=== PATIENT | male | born 1970 | race African-American/Black ===

== ENCOUNTER 2021-05-13 15:07 | Emergency (ER) | payer OTHER ==
[~2021-05-13] VITALS: Ht 182.9 cm; Wt 90.7 kg
[2021-05-13] MEDS ORDERED: NALOXONE PREFILLED SYRINGE 2 MG/2 ML SYRINGE ONE (15:42)
[2021-05-13] MEDS: NALOXONE HCL 0.4 MG/ML AMPUL IV ONE (15:48)
--- NOTE | 2021-05-13 16:00 | NUR ---
PT AAOX1, ABLE TO VERBALIZE HIS NAME, WILL OPEN EYES & GOES BACK TO SLEEP. VSS. RR EVEN & UNLABORED. PT SEEN & EVAL'D BY DR. DASLIVA. REFUSED BLOOD DRAW & UNCOOPERATIVE, ERMD AWARE. PLACED ON VIDEO PRESENTATION OPERATOR, SR. WILL CONT TO MONITOR.
[2021-05-13] MEDS: NALOXONE PREFILLED SYRINGE 2 MG/2 ML SYRINGE IM ONE (16:05)
[2021-05-13] MEDS: IV NS 0.9% 1,000 ML BAG IV ONE (16:07)
[2021-05-13] MEDS: ONDANSETRON HCL/PF 4 MG/2 ML VIAL IV ONE (16:07)
--- NOTE | 2021-05-13 16:10 | NUR ---
GIVEN OJ, PT MAX WELL.
--- NOTE | 2021-05-13 17:45 | NUR ---
PT REQUESTING FOOD. ORDERED FOOD FROM THE KITCHEN.
[2021-05-13] MEDS ORDERED: NALO4SPR BNOSTRILS (19:42)
[2021-05-13 19:49] VITALS: BP 128/70
--- NOTE | 2021-05-13 19:49 | NUR ---
Patient discharged to home in stable condition. Written and verbal after care instructions given. Patient verbalizes understanding of instruction.
== END 2021-05-13 19:50 | disposition home or self-care (01) ==
LOC: ER 15:09 → EDBD 15:09 → ER 19:50
DX: T40.601A Poisoning by unspecified narcotics, accidental (unintentional), initial encounter (principal); F11.229 Opioid dependence with intoxication, unspecified; Y92.511 Restaurant or cafe as the place of occurrence of the external cause
CPT/HCPCS: 82962; 93005; 96372; 99283; J2310

== ENCOUNTER 2021-07-25 23:34 | Emergency (ER) | payer OTHER ==
[~2021-07-25] VITALS: Ht 185.4 cm; Wt 74.8 kg
[~2021-07-25 23:34] MED LIST: NALO4SPR BNOSTRILS
[2021-07-25 23:52] VITALS: BP 149/87
--- NOTE | 2021-07-25 23:55 | NUR ---
[id number] C/O CHRONIC LEFT LEG PAIN. PT A/OX4. TOLERATING R/A WELL WITH NO SOB.
--- NOTE | 2021-07-26 00:18 | NUR ---
Patient discharged to home in stable condition with security. Written and verbal after care instructions given. Patient verbalizes understanding of instruction. Pt ambulatory with a steady gait
== END 2021-07-26 00:18 | disposition home or self-care (01) ==
LOC: ER 23:41
DX: G89.29 Other chronic pain (principal); M79.605 Pain in left leg; Z76.5 Malingerer [conscious simulation]; Z59.00 Homelessness unspecified; Z79.899 Other long term (current) drug therapy

== ENCOUNTER 2022-07-03 16:37 | Inpatient (IN) | payer OTHER ==
[~2022-07-03] VITALS: Ht 198.1 cm; Wt 93.9 kg
[2022-07-03] MEDS ORDERED: CHLORDIAZEPOXIDE HCL 25 MG CAPSULE ONE (17:23)
[2022-07-03] MEDS ORDERED: ONDANSETRON HCL/PF 4 MG/2 ML VIAL ONE (17:23)
[2022-07-03] MEDS ORDERED: KETOROLAC TROMETHAMINE 15 MG/ML VIAL ONE (17:23)
[2022-07-03] MEDS ORDERED: LORAZEPAM INJ 2 MG/ML VIAL ONE ×2 (17:23→19:51)
[2022-07-03] MEDS ORDERED: FAMOTIDINE/PF INJ 20 MG/2 ML VIAL IV ONE ×2 (17:24→17:30)
[2022-07-03] MEDS ORDERED: ONDANSETRON HCL/PF 4 MG/2 ML VIAL IVP ONE (17:30)
[2022-07-03] MEDS ORDERED: CHLORDIAZEPOXIDE HCL 25 MG CAPSULE PO ONE (17:30)
[2022-07-03] MEDS ORDERED: IV NS 0.9% 1,000 ML BAG IV ONE (17:30)
[2022-07-03] MEDS ORDERED: KETOROLAC TROMETHAMINE INJ 30 MG/ML VIAL IV ONE (17:30)
[2022-07-03] MEDS ORDERED: LORAZEPAM INJ 2 MG/ML VIAL IV ONE ×2 (17:30→19:30)
[2022-07-03 17:32] LABS: BASOPHILS % (AUTO) 0.6 % (0.0-2.0); EOSINOPHILS % (AUTO) 0.4 % (0.0-6.0); HEMATOCRIT 35 % (39-51); HEMOGLOBIN 11.5 g/dL (13.5-17.5); LYMPHOCYTES # (AUTO) 0.8 K/uL (0.8-4.8); LYMPHOCYTES % (AUTO) 20.8 % (20.0-44.0); MEAN CORPUSCULAR HGB CONC 33 g/dl (31.0-36.0); MEAN CORPUSCULAR VOLUME 91 fL (80-96); MONOCYTES # (AUTO) 0.4 K/uL (0.1-1.30); MONOCYTES % (AUTO) 10.8 % (2.0-12.0); NEUTROPHILS # (AUTO) 2.5 K/uL (1.8-8.9); NEUTROPHILS % (AUTO) 67.4 % (43.0-81.0); PLATELET COUNT (AUTO) 82 K/uL (150-450); RED BLOOD CELL COUNT(AUTO) 3.87 MIL/uL (4.5-6.0); WHITE BLOOD COUNT (AUTO) 3.7 K/uL (4.3-11.0)
--- NOTE | 2022-07-03 17:35 | NUR ---
[id number], from [facility] c/o nausea vomiting, syncope. On room air, breathing evenly and unlabored. Kept comfortable, will continue to monitor accordingly.
--- NOTE | 2022-07-03 17:37 | NUR ---
[facility] COLLECTED AND SENT TO LAB
[2022-07-03 17:52] LABS: CALCIUM, SERUM 8.9 mg/dL (8.5-10.1); CARBON DIOXIDE 25 mmol/L (21-32); CHLORIDE 104 mmol/L (98-107); CREATININE 0.9 mg/dL (0.6-1.3); GLUCOSE 98 mg/dL (74-106); POTASSIUM 3.4 mmol/L (3.5-5.1); SODIUM SERUM 144 mmol/L (136-145); UREA NITROGEN, BLOOD 7 mg/dL (7-18)
[2022-07-03 18:00] LABS: ALANINE AMINOTRANSFERASE 50 U/L (12-78); ALBUMIN 3.8 g/dL (3.4-5.0); ALCOHOL, BLOOD 88 mg/dL (0-0); ALKALINE PHOSPHATASE 107 U/L (46-116); ASPARTATE AMINOTRANSFERASE 61 U/L (15-37); BILIRUBIN,DIRECT 0.2 mg/dL (0.0-0.2); BILIRUBIN,TOTAL 0.7 mg/dL (0.2-1.0); LIPASE 85 U/L (73-393); TOTAL PROTEIN, SERUM 7.2 g/dL (6.4-8.2)
[2022-07-03] MEDS ORDERED: POTASSIUM CHLORIDE 20 MEQ TAB.PRT.SR PO ONE ×2 (19:51→20:00)
--- NOTE | 2022-07-03 19:51 | NUR ---
URINE SPECIMEN SENT TO LAB
[2022-07-03 20:04] LABS: BILIRUBIN,URINE NEGATIVE (NEGATIVE); COLOR,URINE YELLOW (YELLOW); LEUKOCYTE ESTERASE ,URINE NEGATIVE (NEGATIVE); NITRITE, URINE NEGATIVE (NEGATIVE); PROTEIN,URINE 1+ mg/dl (NEGATIVE); UGLUCOSE NEGATIVE (NEGATIVE)
[2022-07-03 20:28] LABS: BACTERIA,URINE Few /HPF (None Seen); RBC,URINE 0-2 /HPF (0-2); SQUAMOUS EPITHELIAL CELL,UR Few /HPF (None Seen); WBC,URINE 0-2 /HPF (0-3)
[2022-07-03] MEDS ORDERED: MAG HYDROX/AL HYDROX/SIMETH 30 ML UDC PO PRN (23:30)
[2022-07-03] MEDS ORDERED: ONDANSETRON HCL/PF 4 MG/2 ML VIAL IVP PRN (23:30)
[2022-07-03] MEDS ORDERED: IV 1/2NS 1000 ML 1,000 ML IV PRN (23:30)
[2022-07-03] MEDS ORDERED: Z GUARD REMEDY 4 OZ OINT TP PRN (23:30)
[2022-07-03] MEDS ORDERED: ACETAMINOPHEN 325 MG TABLET PO PRN (23:30)
--- NOTE | 2022-07-03 23:31 | NUR ---
REPORT GIVEN TO DANN WHITE
--- NOTE | 2022-07-03 23:45 | NUR ---
PATIENT TRANSFERRED TO ROOM 308 VIA ACLS PROTOCOL
--- NOTE | 2022-07-03 23:50 | NUR ---
RN RECEIVING PATIENT FROM ER NOTE PATIENT ARRIVED TO UNIT VIA GURNEY FROM ER STABLE. PATIENT IS A/OX4. NO S/S OF DISTRESS, BREATHING WITHOUT DIFFICULTY ON ROOM AIR. L-WRIST #18 INTACT AND PATENT. TELE READS SR 81. PATIENT ORIENTED TO UNIT. PATIENT GIVEN CALL MALIK AND EDUCATED ON USE. TELE BOX APPLIED AND PATIENT EDUCATION GIVEN REGARDING ITS USE AND ROLE IN PRESENT TREATMENT PLAN. ALL BELONGINGS ACCOUNTED FOR, LOGGED INTO SHEET, AND PLACED IN CHART. SAFETY MEASURES IN PLACE: BED LOCKED AND AT LOWEST POSITION, RAILS UP X2, CALL MALIK WITHIN REACH. WILL CONTINUE TO MONITOR PATIENT.
[2022-07-04] MEDS: LORAZEPAM INJ 2 MG/ML VIAL IV PRN ×2 (00:52→06:33)
[2022-07-04 01:17] VITALS: BP 159/93
[2022-07-04 04:00] VITALS: BP 156/85
[2022-07-04 07:01] LABS: HEMOGLOBIN 11.6 g/dL (13.5-17.5); MONOCYTES # (AUTO) 0.4 K/uL (0.1-1.30); PLATELET COUNT (AUTO) 69 K/uL (150-450); WHITE BLOOD COUNT (AUTO) 3.7 K/uL (4.3-11.0)
--- NOTE | 2022-07-04 07:01 | NUR ---
RN CLOSING NOTE PATIENT AWAKE IN BED. A/OX4 W/ BOUTS OF CONFUSION. NO S/S OF DISTRESS, BREATHING WITHOUT DIFFICULTY ON ROOM AIR. L-WRIST #18 INTACT AND PATENT W/ NS 75ML/HR. TELE READS SR 85. SAFETY MEASURES IN PLACE: BED LOCKED AND AT LOWEST POSITION, RAILS UP X2, CALL MALIK WITHIN REACH. WILL ENDORSE TO NEXT SHIFT FOR JENARO.
--- NOTE | 2022-07-04 07:05 | NUR ---
RN OPENING NOTE RECEIVED PATIENT AWAKE IN BED, A/OX4 HOWEVER W/ BOUTS OF CONFUSION. NO S/S OF DISTRESS, BREATHING WITHOUT DIFFICULTY ON ROOM AIR. L-WRIST #18 INTACT AND PATENT W/ NS 75ML/HR. TELE READS SR 85. SAFETY MEASURES IN PLACE: BED LOCKED AND AT LOWEST POSITION, RAILS UP X2, CALL MALIK WITHIN REACH. WILL CONTINUE TO MONITOR THE PATIENT FOR JENARO.
[2022-07-04 07:20] LABS: BASOPHILS % (AUTO) 0.3 % (0.0-2.0); HEMATOCRIT 35 % (39-51); LYMPHOCYTES % (AUTO) 26.4 % (20.0-44.0); MEAN CORPUSCULAR HGB CONC 33 g/dl (31.0-36.0); MEAN CORPUSCULAR VOLUME 91 fL (80-96); MONOCYTES % (AUTO) 10.9 % (2.0-12.0); NEUTROPHILS # (AUTO) 2.3 K/uL (1.8-8.9); NEUTROPHILS % (AUTO) 61.4 % (43.0-81.0); RED BLOOD CELL COUNT(AUTO) 3.88 MIL/uL (4.5-6.0)
[2022-07-04 07:28] LABS: THYROID STIMULATING HORMONE 0.334 uIU/mL (0.358-3.74)
[2022-07-04 07:58] LABS: ALBUMIN 3.2 g/dL (3.4-5.0); CALCIUM, SERUM 8.6 mg/dL (8.5-10.1); CREATININE 0.8 mg/dL (0.6-1.3); MAGNESIUM 1.4 mg/dL (1.8-2.4); POTASSIUM 3.4 mmol/L (3.5-5.1); TOTAL PROTEIN, SERUM 6.6 g/dL (6.4-8.2)
[2022-07-04] MEDS: PANTOPRAZOLE 40 MG TABLET.DR PO SCH (08:33)
[2022-07-04] MEDS: CHLORDIAZEPOXIDE HCL 25 MG CAPSULE PO SCH ×3 (08:34→17:14)
[2022-07-04] MEDS: THIAMINE HCL 100 MG TABLET PO SCH (08:34)
[2022-07-04] MEDS: FOLIC ACID 1 MG TABLET PO SCH (08:35)
[2022-07-04 08:39] VITALS: BP 173/91
[2022-07-04 08:57] LABS: BILIRUBIN,DIRECT 0.2 mg/dL (0.0-0.2)
[2022-07-04] MEDS ORDERED: LISINOPRIL (10MG) 10 MG TABLET PO SCH (09:00)
--- NOTE | 2022-07-04 09:29 | NUR ---
WOUND CARE CONSULT: PT PRESENTS WITH CALLUSED FEET AND DARK DEBRIS WHICH IS ADHERENT WELL JAGGED TOENAILS, PRESENT ON ADMISSION. PT STATES THAT HE WALKS A LOT IN BAD SHOES. DR LIZ CALLED FOR DPM CONSULT.
[2022-07-04] MEDS ORDERED: QUET25TA PO (09:54)
[2022-07-04] MEDS ORDERED: LISI10TA29 PO (09:54)
[2022-07-04] MEDS ORDERED: PANT40TA49 PO (09:54)
[2022-07-04] MEDS ORDERED: AMLO-213 PO (09:54)
[2022-07-04] MEDS ORDERED: ONDA-97 PO (09:54)
[2022-07-04] MEDS ORDERED: SERT50TA PO (09:54)
[2022-07-04] MEDS: MAGNESIUM OXIDE 400 MG TABLET PO ONE ×2 (10:09→10:17)
[2022-07-04] MEDS: POTASSIUM CHLORIDE 20 MEQ TAB.PRT.SR PO SCH ×2 (10:09→10:17)
--- NOTE | 2022-07-04 10:18 | NUR ---
Patient refused both medications : Magnesium [id number] x 4tabs and K-Dur 20 meq. Educated patient about risks and benefits of taking the medications but still refused. informed
--- NOTE | 2022-07-04 11:02 | NUR ---
SW Consult: SW consult requested for patient possible homelessness and substance abuse. Patient was brought in due to alcohol withdrawal. Patient presents alert and oriented x3 (self,place,time). Pt appeared with a flat affect. He was vague with his questions, however, he was cooperative. Pt stated he was brought to the hospital due to feeling sick. Pt stated that he has been on and off homeless. He was unable to give me a current address. He has no supportive contact. SW assessed for suicidal or homicidal, pt denied. SW assessed any hallucinations visual/auditory, pt denied. SW assessed for substance abuse and pt expressed that he has been drinking "a lot" and stated he drinks everyday. Pt denied any use of drugs. SW offered pt resources and pt was accepting of shelters and substance abuse referrals. Homeless waiver form in the chart. DC PLAN: Pt is homeless. SW consulted with CM to send pt to [facility]. Substance Abuse resources provided included: [facility] Substance Abuse Self-Helpline ([facility]) ; CRI -HELP [address] [facility]. [place] [address] ; [facility] [address] [facility] [address] ; [facility] Rehabilitation [facility] [address] [facility] [phone] ; [facility] [address] [facility] [phone] ; [facility] 4940 [place] [facility] [phone] ; [facility] 909 [facility] [address] ; [facility] Substance Abuse Helpline([facility])-[facility] ; [facility] ; [facility] [place]; [facility] [place]; [facility] [place]; I-[facility] [place]; [facility] [place]; [facility] [place]; [facility]. [place]; Alcoholics Anonymous -SFV; Rb-Uonr-Dcjxgao ; Marijuana Anonymous -SFV; Narcotics Anonymous www.na.org; Shelters: [facility] [place] Provider: [facility] [place] Address: [address], [address] # of Beds: 47 Population Served: [facility] 6 | [facility] Laly [facility] Provider: [facility] Address: [address] [place] [address], [address] # of Beds: 66 Population Served: [facility] Provider: First to Serve Address: [address] [facility], [address] # of Beds: 56 Population Served: [facility] [place] Provider: [facility] Address: [address] [facility], [address] # of Beds: 49 Population Served: [facility] 8 | [facility] Provider: First to Serve Address: [address] [facility], [address] # of Beds: 37 Population Served: [facility] Hygiene: [facility]: [address] [place] ; [facility] [address] [facility] ; [facility] [address] [place] [address] . Food Resources: [place] [facility]- [address] [address]. [place]; Meet Each Need with Dignity ([facility]) [address] [place]; [facility] 5541 [facility]; [facility] 8547 [facility]. Mental Health resources provided: [facility] [address] [place], [place] [address] ; [facility] [address] [address] [facility] [address], [place], [place] [phone] ; [facility] [address] [place], [place] [phone] ; [facility] [address] [place], [place] [id number] Healthcare Clinics: [facility] [address] [facility], [address] [place]. [place] ; [facility] [address] [facility] [address] [place] [address]; [facility] [address] [place] [phone]) [phone] Counseling--Outpatient [facility] [address] [facility], [place] [address] (Specializes in in-depth psychotherapy for emotional distress: anxiety, depression, interpersonal conflicts, life transitions, childhood abuse) [facility] [address] [place], [place] [phone] (Assist with solving problem marital difficulties, separation & divorce, aging parents, & grief, chronic & terminal illness) [facility] [address] [place] [address] (Deal with loss & grief, anxiety, marital difficulties) Homebound/Mental Health Services [address] [facility], [address] [place], [place] [address] (Provide in-home mental services to people who are incapable of leaving their homes) [facility] of the Elderly Senior Service/Resource Center [address] [place], [place] [phone] [facility] [address] [facility]. [place], [place] [address] PSYCHIATRIC OUTPATIENT SERVICES [facility] Partial Hospitalization and Intensive Outpatient Program (Managed Care and [place] Only)[address] [place] [address] [facility] [phone] [facility] Partial Hospitalization and Outpatient [id number] [place], [place] [phone] [place] A[place] [facility] [place] [id number] [facility]. [address] [place], [place] [phone] [facility] Partial Hospitalization and Outpatient [id number] Bern[address] Malone [place] aiden, [phone] Substance Abuse resources provided included: [facility] Substance Abuse Self-Helpline ([facility]) ; C[facility]LP [address] [facility]. [place] 9[address] ; [facility] [address] [facility] [address] ; [facility] Rehabilitation Program [address] [place] vdGarnet Health [address] ; [facility] [address] [facility] [phone] ; [facility] Treatment [facility] 4940 [facility] [address] ; [facility] 909 [facility] [phone] ; [facility] Substance Abuse Helpline([facility])-[facility] ; [facility] ; [facility]; [facility] [place]; [facility] [place]; [facility] [place]; [facility]; [place] [facility]; [facility] Treatment [place]; [facility], [facility]. Mireya Ascencio; Alcoholics Anonymous -sfv; [place] ; Marijuana Anonymous -SFV; Narcotics Anonymous www.na.org;
[2022-07-04 12:00] VITALS: BP 156/97
[2022-07-04 14:36] LABS: LYMPHOCYTES % (MANUAL) 18 % (16-48); MONOCYTES % (MANUAL) 5 % (0-11.0); NEUTROPHILS % (MANUAL) 77 (42-76)
[2022-07-04 16:06] VITALS: BP 160/98
[2022-07-04] MEDS: POTASSIUM CL. PREMIX PERIPHER. 50 ML IV SCH ×2 (16:43→17:49)
--- NOTE | 2022-07-04 19:40 | NUR ---
DOUBLE END TENON OPERATOR OPENING NOTE RECEIVED PATIENT IN BED; AWAKE, ALERT AND ORIENTED X 4. ON ROOM AIR; TOLERATING WELL. NOT IN ANY FORM OF RESPIRATORY OR CARDIAC DISTRESS. ON EXTERNAL CARDIAC MONITORING WHICH READS SINUS RHYTHM WITH BBB HR-86 BPM. WITH IV ACCESS ON LEFT WRIST 18g; PATENT AND INTACT INFUSING WITH 1/2 NS 1L RUNNING @ 75 ML/HR; FLUSHES WELL. ABLE TO MAKE NEEDS KNOWN. FALL AND SAFETY PRECAUTIONS INITIATED: BED ALARM ON, CALL LIGHT AND TABLE WITHIN REACH, SIDE RAILS UP X 3, BED IN LOWEST LOCKED POSITION. WILL CONTINUE TO MONITOR THROUGHOUT SHIFT.
--- NOTE | 2022-07-04 19:49 | NUR ---
RN CLOSING NOTE PATIENT AWAKE IN BED, A/OX4, NO S/S OF DISTRESS, BREATHING WITHOUT DIFFICULTY ON ROOM AIR. PATIENT AMBULATING LATER THIS AFTERNOON, HAD 2 BOWEL MOVEMENT. L-WRIST #18 C/D/I W/ NS 75ML/HR OFF AT THE MOMENT WHILE PATIENT TRYING ANOTHER BM. TELE READS SR 80 WITH BBB. SAFETY MEASURES IN PLACE: BED LOCKED AND AT LOWEST POSITION, RAILS UP X2, CALL MALIK WITHIN REACH. ENDORSED TO PM SHIFT NURSE FOR JENARO
[2022-07-04] MEDS: QUETIAPINE FUMARATE 25 MG TABLET PO SCH (22:00)
[2022-07-04] MEDS ORDERED: hydrALAZINE HCL IV 20 MG VIAL IV PRN (23:30)
[2022-07-05] MEDS: LORAZEPAM INJ 2 MG/ML VIAL IV PRN ×4 (00:13→21:08)
--- NOTE | 2022-07-05 00:13 | NUR ---
RN NOTE ANXIOUSNESS NOTED ON PATIENT. ATIVAN INJ 1 MG GIVEN IV ORDERED. WILL CONTINUE TO MONITOR.
--- NOTE | 2022-07-05 03:40 | NUR ---
RN NOTE PATIENT'S EXTERNAL TIME CYCLE OPERATOR LEADS ARE OFF. TRIED TO FIX IT BUT PATIENT REFUSED TO BE HOOKED BACK TO THE EXTERNAL TIME CYCLE OPERATOR.
[2022-07-05 07:00] VITALS: BP 146/77
--- NOTE | 2022-07-05 07:05 | NUR ---
WATER LEAK REPAIRER CLOSING NOTE PATIENT IN BED; AWAKE, A/O X 4. STABLE ON ROOM AIR. IN NO ACUTE DISTRESS. WITH IV ACCESS ON LEFT WRIST 18g; PATENT AND INTACT INFUSING WITH 1/2 NS 1L RUNNING @ 75 ML/HR; FLUSHING WELL. ALL NEEDS ATTENDED. ALL DUE MEDS GIVEN ORDERED. FALL AND SAFETY PRECAUTIONS MAINTAINED: BED ALARM ON, CALL LIGHT AND TABLE WITHIN REACH, SIDE RAILS UP X 3, BED IN LOWEST LOCKED POSITION. ENDORSED TO MORNING SHIFT FOR CONTINUITY OF CARE.
[2022-07-05] MEDS ORDERED: POTASSIUM CHLORIDE 20 MEQ TAB.PRT.SR PO ONE (07:30)
[2022-07-05] MEDS ORDERED: CLONIDINE HCL 0.1 MG TABLET PO PRN (07:30)
[2022-07-05] MEDS: PANTOPRAZOLE 40 MG TABLET.DR PO SCH ×2 (07:30→08:09)
--- NOTE | 2022-07-05 07:40 | NUR ---
RN NOTE- PATIENT IN BED; AWAKE, A/O X 4. ANXIOUS, TREMORS IN HANDS, ATIVAN [address] LANDA AT BEDSIDE. . WITH IV ACCESS ON LEFT WRIST 18g; PATENT AND INTACT INFUSING WITH 1/2 NS RUNNING @ 75 ML/HR;. . FALL AND SAFETY PRECAUTIONS MAINTAINED: MONITOR FOR SZ AND WITHDRAWAL SX, BED ALARM ON, CALL LIGHT AND TABLE WITHIN REACH, SIDE RAILS UP X 3, BED IN LOWEST LOCKED POSITION.
[2022-07-05] MEDS: SERTRALINE HCL 50 MG TABLET PO SCH (08:08)
[2022-07-05] MEDS: THIAMINE HCL 100 MG TABLET PO SCH (08:08)
[2022-07-05] MEDS: CHLORDIAZEPOXIDE HCL 25 MG CAPSULE PO SCH ×3 (08:09→17:30)
[2022-07-05] MEDS: LISINOPRIL (20MG) 20 MG TABLET PO SCH (08:09)
[2022-07-05] MEDS: AMLODIPINE BESYLATE 10 MG TABLET PO SCH (08:09)
[2022-07-05] MEDS: FOLIC ACID 1 MG TABLET PO SCH (08:09)
[2022-07-05] MEDS: MAGNESIUM OXIDE 400 MG TABLET PO SCH ×2 (08:18→21:49)
[2022-07-05] MEDS ORDERED: ONDANSETRON 4 MG TAB.RAPDIS PO PRN (08:30)
[2022-07-05] MEDS ORDERED: LISINOPRIL (10MG) 10 MG TABLET PO SCH (09:00)
[2022-07-05 16:00] VITALS: BP 149/89
--- NOTE | 2022-07-05 18:34 | NUR ---
RN CLOSING NOTE- PT IN BED AWAKE, INTERACTIVE, DECREASED TREMULOUSNESS TODAY, MEDICATED W ATIVAN 1MG IVP. PO INTAKE GOOD, AMBULATES TO BR. VOIDING IN URINAL; SIDE RILS UP, BED LOCKED, CALL LIGHT IN REACH, MONITOR / ASSIST
--- NOTE | 2022-07-05 19:40 | NUR ---
RN OPENING NOTE RECEIVED PATIENT IN BED; AWAKE, ALERT AND ORIENTED X 4. ON ROOM AIR; TOLERATING WELL. NOT IN ANY FORM OF RESPIRATORY OR CARDIAC DISTRESS. TELE MONITORING BOX ON STANDBY MODE; PATIENT REFUSED TO BE ATTACHED TO THE MONITOR BOX. WITH IV ACCESS ON LEFT WRIST 18g; PATENT, INTACT AND SALINE LOCKED. ABLE TO MAKE NEEDS KNOWN. FALL AND SAFETY PRECAUTIONS INITIATED: BED ALARM ON, CALL LIGHT AND TABLE WITHIN REACH, SIDE RAILS UP X 3, BED IN LOWEST LOCKED POSITION. WILL CONTINUE TO MONITOR THROUGHOUT SHIFT.
[2022-07-05 20:00] VITALS: BP 142/96
--- NOTE | 2022-07-05 21:08 | NUR ---
RN NOTE PATIENT REQUESTED FOR ATIVAN. PRN ATIVAN INJ 0.5ML GIVEN IV ORDERED. WILL CONTINUE TO MONITOR AND REASSESS PATIENT.
[2022-07-05] MEDS: QUETIAPINE FUMARATE 25 MG TABLET PO SCH (21:49)
[2022-07-05] MEDS ORDERED: QUETIAPINE FUMARATE 25 MG TABLET PO SCH (22:00)
[2022-07-06] VITALS: BP 146/72
--- NOTE | 2022-07-06 06:56 | NUR ---
READING PROFESSOR CLOSING NOTE PATIENT IN BED; AWAKE, A/O X 4. STABLE ON ROOM AIR. IN NO ACUTE DISTRESS. WITH IV ACCESS ON RIGHT UPPER ARM MIDLINE 18g; PATENT AND INTACT INFUSING WITH 1/2 NS 1L RUNNING @ 75 ML/HR; FLUSHING WELL. ALL NEEDS ATTENDED. ALL DUE MEDS GIVEN ORDERED. FALL AND SAFETY PRECAUTIONS MAINTAINED: BED ALARM ON, CALL LIGHT AND TABLE WITHIN REACH, SIDE RAILS UP X 3, BED IN LOWEST LOCKED POSITION. ENDORSED TO MORNING SHIFT FOR CONTINUITY OF CARE.
[2022-07-06] MEDS: PANTOPRAZOLE 40 MG TABLET.DR PO SCH ×2 (07:30→08:26)
--- NOTE | 2022-07-06 07:30 | NUR ---
CREAM DUMPER OPENING NOTE RECEIVED PATIENT ON BED AWAKE AND A/O X 4. ON ROOM AIR; TOLERATING WELL. NOT IN DISTRESS. TELE MONITOR ON STANDBY MODE. PATIENT REFUSED TO BE ATTACHED ON TELE MONITOR. WITH IV ACCESS ON LEFT WRIST G18 PATENT, INTACT AND SALINE LOCKED. FALL AND SAFETY PRECAUTIONS MAINTAINED. CALL LIGHT WITHIN REACH. BED ON LOWEST LOCKED POSITION, SIDE RAILS UP X2. WILL CONTINUE TO MONITOR.
[2022-07-06 08:00] VITALS: BP 160/105
[2022-07-06] MEDS: THIAMINE HCL 100 MG TABLET PO SCH (08:26)
[2022-07-06] MEDS: CHLORDIAZEPOXIDE HCL 25 MG CAPSULE PO SCH ×2 (08:26→13:12)
[2022-07-06] MEDS: LISINOPRIL (20MG) 20 MG TABLET PO SCH (08:26)
[2022-07-06] MEDS: SERTRALINE HCL 50 MG TABLET PO SCH (08:26)
[2022-07-06] MEDS: AMLODIPINE BESYLATE 10 MG TABLET PO SCH (08:27)
[2022-07-06] MEDS: FOLIC ACID 1 MG TABLET PO SCH (08:27)
[2022-07-06] MEDS ORDERED: LORA-259 PO (08:35)
[2022-07-06] MEDS: LORAZEPAM INJ 2 MG/ML VIAL IV PRN (08:37)
[2022-07-06] MEDS ORDERED: FOLI0.8C PO (08:38)
[2022-07-06] MEDS ORDERED: THIA100T88 PO (08:38)
[2022-07-06 12:00] VITALS: BP 156/101
--- NOTE | 2022-07-06 15:30 | NUR ---
WET ROOM SUPERVISOR NOTES PATIENT WAS SEEN BY DR. LANDA AND ORDERED PATIENT FOR DISCHARGE TO [facility]. DISCHARGE INSTRUCTION PROVIDED TO PATIENT. PATIENT VERBALIZED UNDERSTANDING. DISCHARGE AND BELONGINGS LIST FORM SIGNED. REMOVED IV LINE. PATIENT WAS PICKED UP BY AMBULANCE PERSONNEL IN STABLE CONDITION, AMBULATORY. MD AND CHARGE NURSE ARE AWARE OF THE DISCHARGE.
== END 2022-07-06 15:30 | DRG 425 ==
LOC: ER 16:40 → TELE 22:49
PROVIDERS: ADMIT Nurse Practitioner Family; ATTEND Internal Medicine
DX: E87.6 Hypokalemia (principal); D61.818 Other pancytopenia; F29 Unspecified psychosis not due to a substance or known physiological condition; F25.1 Schizoaffective disorder, depressive type; I10 Essential (primary) hypertension; J44.9 Chronic obstructive pulmonary disease, unspecified; Z59.00 Homelessness unspecified; Z20.822 Contact with and (suspected) exposure to COVID-19; F17.200 Nicotine dependence, unspecified, uncomplicated; I20.9 Angina pectoris, unspecified; Y90.4 Blood alcohol level of 80-99 mg/100 ml; F19.10 Other psychoactive substance abuse, uncomplicated; F41.9 Anxiety disorder, unspecified; L60.3 Nail dystrophy; R25.1 Tremor, unspecified; L84 Corns and callosities; R20.2 Paresthesia of skin; F10.229 Alcohol dependence with intoxication, unspecified; F10.239 Alcohol dependence with withdrawal, unspecified
CPT/HCPCS: 36415; 80048-TC; 80076-TC; 81001; 83690-TC; 83735-TC; 84100-TC; 84443-TC; 85025-TC; 87081-TC; A4223; C9803; G0378; G0480; J0360; J1885; J2060; J2405; J3480; J3490; J7030

== ENCOUNTER 2022-07-19 21:29 | Emergency (ER) | payer OTHER ==
[~2022-07-19] VITALS: Ht 177.8 cm; Wt 76.2 kg
[~2022-07-19 21:29] MED LIST changes: +AMLO-213 PO; +FOLI0.8C PO; +LISI10TA29 PO; +LORA-259 PO; -NALO4SPR BNOSTRILS; +ONDA-97 PO; +PANT40TA49 PO; +QUET25TA PO; +SERT50TA PO; +THIA100T88 PO
--- NOTE | 2022-07-19 21:49 | NUR ---
[id number] FROM STORE C/O ABD PAIN X1 DAY
--- NOTE | 2022-07-19 21:50 | NUR ---
DR. TORRES AT BEDSIDE
[2022-07-19] MEDS ORDERED: IV NS 0.9% 500 ML BAG IV ONE (22:00)
[2022-07-19] MEDS ORDERED: ONDANSETRON HCL/PF 4 MG/2 ML VIAL IVP ONE (22:00)
--- NOTE | 2022-07-19 22:18 | NUR ---
PT REFUSING CARE AND NOT COOPERATING. PT UNABLE TO PROVIDE CLEAR ANSWERS TO DR. TORRES OR NURSING STAFF. PT SLURRING HIS WORDS AND BECOMING COMBATIVE WHEN BEING ASKED IF HE WANTS HELP AND STARTED TO TRY TO HIT STAFF.
[2022-07-19 22:38] VITALS: BP 118/51
== END 2022-07-19 22:39 | disposition left against medical advice (07) ==
LOC: ER 21:36
DX: R10.84 Generalized abdominal pain (principal); I10 Essential (primary) hypertension; J44.9 Chronic obstructive pulmonary disease, unspecified; F20.9 Schizophrenia, unspecified; F17.200 Nicotine dependence, unspecified, uncomplicated; Z79.899 Other long term (current) drug therapy